=== PATIENT | female | born 1960 | race Two or more races ===

== ENCOUNTER 2022-05-06 10:18 | Outpatient (CLI) | payer OTHER | END 2022-05-06 10:26 | disposition home or self-care (01) | LOC: SONOGRAMA 10:18 | PROVIDERS: ATTEND Pathology Anatomic Pathology & Clinical Pathology | DX: D34 Benign neoplasm of thyroid gland (principal); E04.9 Nontoxic goiter, unspecified; E04.2 Nontoxic multinodular goiter; E06.5 Other chronic thyroiditis ==